=== PATIENT | female | born 1985 | race Two or more races ===

== ENCOUNTER 2019-05-18 03:24 | Inpatient (IN) ==
[2019-05-18 03:31] VITALS: BMI 25.1
[2019-05-18 03:58] LABS: BILIRUBIN,URINE NEGATIVE (NEGATIVE); BLOOD/HEMOGLOBIN,URINE 4+ (NEGATIVE); GLUCOSE, URINE NEGATIVE (NEGATIVE); KETONES,URINE NEGATIVE (NEGATIVE); LEUKOCYTE ESTERASE ,URINE NEGATIVE (NEGATIVE); NITRITES,URINE NEGATIVE (NEGATIVE); PROTEIN,URINE NEGATIVE (NEGATIVE); UROBILINOGEN,URINE NORMAL (NORMAL)
[2019-05-18 03:59] LABS: APPEARANCE,URINE CLEAR (CLEAR); COLOR,URINE YELLOW (YELLOW)
[2019-05-18 04:11] LABS: AMNISURE ROM TEST NO MEMBRANES RUPTURE (NO RUPTURE)
[2019-05-18 04:13] LABS: BACTERIA,URINE NEGATIVE /HPF (NEGATIVE); RBC,URINE 0-2 /HPF (0-3); SQUAMOUS EPITHELIAL CELL,UR FEW /HPF (NEGATIVE)
[2019-05-18] MEDS ORDERED: NS 1000 ML 1,000 ML ONE (04:18)
[2019-05-18] MEDS ORDERED: NS 1000 ML 1,000 ML IV ONE (04:19)
[2019-05-18] MEDS ORDERED: D5 1/2 NS 1000 ML 1,000 ML IV SCH (05:00)
[2019-05-18] MEDS ORDERED: PHENERGAN INJ 25 MG IM PRN (05:00)
[2019-05-18] MEDS ORDERED: PITOCIN IVP ONE (05:00)
[2019-05-18] MEDS ORDERED: DILAUDID INJ IVP PRN (05:00)
[2019-05-18] MEDS ORDERED: MORPHINE SULFATE INJ 2 MG INJ IVP PRN (05:00)
[2019-05-18] MEDS ORDERED: REGLAN INJ 10 MG VIAL IVP PRN (05:00)
[2019-05-18] MEDS ORDERED: D5LR 1L W PITOCIN 10 UNITS/L 10 UNITS/1,000 ML BAG IV PRN (05:00)
[2019-05-18] MEDS ORDERED: NUBAIN INJ 200 MG VIAL MULTIDOSE IVP PRN (05:00)
[2019-05-18] MEDS ORDERED: D5LR 1L W PITOCIN 10 UNITS/L 10 UNITS/1,000 ML BAG IV ONE (05:05)
[2019-05-18] MEDS ORDERED: PITOCIN ONE (05:05)
[2019-05-18] MEDS ORDERED: D5 1/2 NS 1L W PITOCIN 20 UNITS/L 20 UNITS/1,000 ML BAG IV ONE (05:05)
[2019-05-18 05:43] LABS: BASOPHILS % (AUTO) 0.4 % (0.2-1.0); EOSINOPHILS % (AUTO) 0.6 % (0.9-2.9); HEMATOCRIT 39.1 % (36.0-47.0); HEMOGLOBIN 13.4 g/dL (12.0-16.0); LYMPHOCYTES # (AUTO) 2.6 X10^3/uL (1.3-2.9); LYMPHOCYTES % (AUTO) 30.3 % (21.0-51.0); MEAN CORPUSCULAR HEMOGLOBIN 32.2 pg (27.0-34.0); MEAN CORPUSCULAR HGB CONC 34.4 g/dL (33.0-35.0); MEAN CORPUSCULAR VOLUME 93.9 fL (80.0-100.0); MONOCYTES # (AUTO) 0.7 x10^3/uL (0.3-0.8); MONOCYTES % (AUTO) 8.1 % (0.0-13.0); NEUTROPHILS # (AUTO) 5.1 x10^3/uL (2.2-4.8); NEUTROPHILS % (AUTO) 60.6 % (42.0-75.0); PLATELET COUNT 208 X10^3/uL (150.0-450.0); RED BLOOD COUNT 4.17 X10^6/uL (3.5-5.4); RED CELL DISTRIBUTION WIDTH 14.3 % (11.6-16.5); WHITE BLOOD COUNT 8.5 X10^3/uL (3.6-10.0)
[2019-05-18 05:45] LABS: BLOOD UREA NITROGEN 9 mg/dL (7-18); CALCIUM 8.6 mg/dL (8.5-10.1); CARBON DIOXIDE 18.5 mmol/L (21-32); CHLORIDE 105 mmol/L (98-107); CREATININE 0.55 mg/dL (0.55-1.02); SODIUM 138 mmol/L (136-145); eGFR NON BLACK RACES > 60 (>60)
[2019-05-18] MEDS ORDERED: NUBAIN INJ 10 ONE (06:26)
[2019-05-18] MEDS ORDERED: DERMOPLAST SPRAY TOP PRN (08:43)
[2019-05-18] MEDS ORDERED: MILK OF MAGNESIA PO PRN (08:43)
[2019-05-18] MEDS ORDERED: AMBIEN PO PRN (08:43)
[2019-05-18] MEDS ORDERED: D5 1/2 NS 1000 ML 1,000 ML with PITOCIN 20 UNITS IV SCH ×2 (09:00)
[2019-05-18] MEDS ORDERED: ENGERIX-B PEDIATRIC 1 DOSE IM ONE (09:12)
[2019-05-18] MEDS: MOTRIN TAB 800 MG PO PRN ×2 (12:10→19:34)
[2019-05-18] MEDS: ZANTAC PO SCH ×2 (17:14→20:37)
[2019-05-18] MEDS: PRENATAL PLUS PO SCH (17:14)
[2019-05-19 04:12] LABS: HEMATOCRIT 32.2 % (36.0-47.0)
[2019-05-19] MEDS: MOTRIN TAB 800 MG PO PRN (04:37)
[2019-05-19] MEDS ORDERED: AFLURIA II4 or FLUARIX II4 IM ONE (08:00)
[2019-05-19] MEDS: ZANTAC PO SCH ×2 (10:13→20:12)
[2019-05-19] MEDS: PRENATAL PLUS PO SCH (10:13)
[2019-05-20] MEDS: PRENATAL PLUS PO SCH (08:55)
[2019-05-20] MEDS: ZANTAC PO SCH (08:55)
[2019-05-20] MEDS ORDERED: ADACEL or BOOSTRIX TDaP VACCINE IM ONE (11:54)
[2019-05-20 12:18] VITALS: BP 117/58
== END 2019-05-20 12:20 | disposition home or self-care (01) | DRG 807 ==
LOC: ER 03:24 → LD 05:01 → MED/SURG 08:50
PROVIDERS: ADMIT Obstetrics & Gynecology Obstetrics; ATTEND Specialist
DX: Z23 Encounter for immunization; O80 Encounter for full-term uncomplicated delivery; Z3A.39 39 weeks gestation of pregnancy; Z37.0 Single live birth
CPT/HCPCS: 36415; 59409; 80048; 81001; 84112; 85014; 85018; 85025; 86592; 86850; 86900; 86901; 90715; A4222; S0197; J2300; J2590; J7030